=== PATIENT | female | born 1995 | race Caucasian/White ===

== ENCOUNTER 2017-01-12 20:05 | Emergency (ER) | payer BC ==
[~2017-01-12] VITALS: Ht 167.6 cm; Wt 81.7 kg
[~2017-01-12 20:05] MED LIST: BCPILLS PO; CITA10TA4 PO; MNC100 PO
[2017-01-12 20:23] VITALS: TEMP 36.9; Ht 167.6 cm; Wt 81.7 kg
[2017-01-12 21:25] VITALS: O2SAT 100
[2017-01-12] MEDS ORDERED: METOCLOPRAMIDE HCL INJ 5 MG/ML 2 ML VIAL IV STA (21:38)
[2017-01-12] MEDS ORDERED: SODIUM CHLORIDE 0.9% 1000ML 1,000 ML IV STA (21:38)
[2017-01-12] MEDS ORDERED: KETOROLAC TROMETHAMINE 30 MG/ML VIAL IV STA (21:38)
[2017-01-12] MEDS ORDERED: DiphenhydrAMINE HCL 50 MG/ML VIAL IV STA (21:38)
[2017-01-12] MEDS ORDERED: EFF/375 PO (21:56)
[2017-01-12 23:00] VITALS: BP 106/75; PULSE 81; O2SAT 98
--- NOTE | 2017-01-13 03:06 | EMERGENCY ROOM VISIT NOTE ---
History First contact with patient: 21:28 Chief Complaint: HEADACHE Stated Complaint: MIGRAINE, CAN'T BREATH, NAUSEA, LIGHT HEADED History of Present Illness The patient is a 21 year old female who presents to the Emergency Room with complaints of intermittent headache, nausea, tingling and fatigue for the past 3 days. Patient describes the headache as mild, 3 out of 10 to the temporal region. Patient is a college student here. She's been under more stress. Patient denies fever, chills, cough, contusion, vomiting, diarrhea, neck stiffness, sore throat, cold symptoms. Patient states she also suffers from anxiety. She has not missed any doses of her medications. Review of Systems See HPI for pertinent positives & negatives. A total of 10 systems reviewed and were otherwise negative. Past Medical/Surgical History Medical Problems: (1) Anxiety Family History Patient reports no known family medical history. Social History Smoking Status: Never Smoker Drug Use: none Marital Status: single Housing Status: lives with family Occupation Status: student Current/Historical Medications Scheduled Control Pills ( Control Pills), 1 TAB PO DAILY Venlafaxine Hcl (Effexor), 37.5 MG PO BID Allergies Coded Allergies: No Known Allergies (Unverified , 02/21/14) Physical Exam Vital Signs Date Time Temp Pulse Resp B/P Pulse Ox O2 Delivery O2 Flow Rate FiO2 01/12/17 23:00 81 16 106/75 98 01/12/17 22:21 81 16 106/75 98 Room Air 01/12/17 21:33 86 01/12/17 21:25 100 Room Air 01/12/17 21:19 82 16 117/79 95 Room Air 111/77 01/12/17 20:23 36.9 98 18 124/83 100 Room Air Pain Rating (0-10): 3.0 Physical Exam VITALS: Vitals are noted on the nurse's note and reviewed by myself. Vital signs stable. GENERAL: Pleasant female, in no acute distress, nondiaphoretic, well-developed well-nourished. SKIN: The skin was without rashes, erythema, edema, or bruising. There is no tenting of the skin. Capillary reflex less than 2 seconds. HEAD: Normocephalic atraumatic. EARS: External auditory canals clear, tympanic membranes pearly napier without erythema or effusion bilaterally. EYES: Pupils equal round and reactive to light and accommodation. Conjunctivae without injection, sclerae without icterus. Extraocular movements intact. NOSE: Patent, turbinates without inflammation or discharge. No sinus tenderness. MOUTH: Mucous membranes moist. Pharynx without erythema or exudate. Uvula midline. Airway patent. Tongue does not deviate. NECK: Supple without nuchal rigidity. No lymphadenopathy. No thyromegaly. Cervical spine is nontender. No JVD. No meningeal signs HEART: Regular rate and rhythm without murmurs gallops or rubs. LUNGS: Clear to auscultation bilaterally without wheezes, rales or rhonchi. No dullness to percussion. No retractions or accessory muscle use. ABDOMEN: Positive bowel sounds x 4. Normal tympanic percussion. Soft, nontender, without masses or organomegaly. Rivera sign negative. No guarding or rebound tenderness. MUSCULOSKELETAL: No muscle atrophy, erythema, or edema noted. NEURO: Patient was alert and oriented to person place and time. Normal sensation to light and sharp touch. No focal neurological deficits. Cranial nerves II-12 grossly intact. No pronator drift. Cerebellar exam intact. Medical Decision & Procedures Medications Administered Medications (Trade) Dose Ordered Sig/Tab Route Start Time Stop Time Status Last Admin Dose Admin Sodium Chloride (Nss 1000ml) 1,000 ml @ 999 mls/hr Q1H1M STAT IV 01/12/17 21:38 01/12/17 22:38 DC 01/12/17 22:21 999 MLS/HR Ketorolac Tromethamine (Toradol Inj) 30 mg NOW STAT IV 01/12/17 21:38 01/12/17 21:41 DC 01/12/17 22:21 30 MG Metoclopramide HCl (Reglan Inj) 10 mg NOW STAT IV 01/12/17 21:38 01/12/17 21:41 DC 01/12/17 22:21 10 MG Diphenhydramine HCl (Benadryl Inj) 12.5 mg NOW STAT IV 01/12/17 21:38 01/12/17 21:41 DC 01/12/17 22:20 12.5 MG ED Course Prior records/ancillary studies reviewed. Additional history obtained from family. Triage Nursing notes reviewed. The patient's history was concerning for headache. Differential diagnosis: Etiologies such as migraine headache, meningitis, sinusitis, CO exposure, ICH, SAH, infection, tumor, headache, sinus thrombosis, arterial dissection, as well as others were entertained. Physical examination findings: As above. Non-focal. ER treatment provided: Benadryl, Toradol, Reglan, IV fluids On reassessment the patient felt better. Diagnostics interpreted by me: Patient declined further workup This appears to be consistent with headache with fatigue. Patient declined further workup and requested to leave. She states she felt much better and did not want any laboratory work here. I informed her that I cannot rule anything out without doing further testing and patient understands this and states she' ll follow-up this week with family care. I informed her I cannot rule out anything for her fatigue without doing further testing and understands this. She states if anything worsens she will return to the ER immediately. Mother was present for this conversation. By the evaluation outlined above emergent etiologies such as meningitis, sinusitis, CO exposure, ICH, SAH, infection, temporal arteritis, tumor, sinus thrombosis, arterial dissection, as well as others were deemed relatively unlikely. The pt informed about the findings as listed above. All questions were answered and pleased with the treatment. Return instructions were outlined and the patient was discharged in stable condition. Referral: The patient was referred back to their primary care physician for follow-up in 2 to 3 days for a recheck of the current condition. Medical Decision As above Impression Primary Impression: Headache Departure Information Dispostion Home / Self-Care Condition GOOD Forms HOME CARE DOCUMENTATION FORM, School Instructions, Return To School: 1 day IMPORTANT VISIT INFORMATION Patient Instructions [facility] Additional Instructions DO NOT drive, drink alcohol, operate machinery, or perform dangerous activities today. You were given medications in the ER that can affect your ability to safely function or operate a vehicle. Rest today in a quiet, peaceful, dark environment and get a full 8-10 hrs of sleep tonight. Avoid loud noises, smoke/smoking, alcohol, bright lights, stress, or physical exertion today to minimize the chance the headache may return. Continue current medications. Ibuprofen(Motrin, Advil) may be used for fever or pain. Use 600mg every six hours as needed. Take with food. Avoid using more than 2400mg in a 24 hour period. Do not use 2400mg per day for more than three consecutive days without physician direction. Prolonged inappropriate use can lead to stomach upset or ulcers. (AND/OR) Acetaminophen(Tylenol) may be used for fever or pain. Use 1000mg every six hours as needed. Avoid using more than 3000mg in a 24 hour period. Return to the ER for passing out, worsening headache, vision problems, neck stiffness/pain, fevers, vomiting, worsening of your condition, or as needed. Follow up with your primary physician in 2-3 days for a recheck of your current condition. School Instructions Return To School: 1 day Problem Qualifiers Primary Impression: Headache Headache type: unspecified Headache chronicity pattern: acute headache Intractability: not intractable Qualified Codes: R51 - Headache
== END 2017-01-12 23:01 | disposition home or self-care (01) ==
LOC: C.EDB 20:06 → C.EDA 23:01
DX: R51 Headache (principal); F41.9 Anxiety disorder, unspecified; Z79.899 Other long term (current) drug therapy

== ENCOUNTER → 2017-07-23 | Outpatient (CLI) | payer BC ==
[~2017-07-23] MED LIST changes: -CITA10TA4 PO; +EFF/375 PO; -MNC100 PO
== END | disposition home or self-care (01) ==
LOC: C.PAPS 11:00
PROVIDERS: ATTEND Obstetrics & Gynecology
DX: Z01.419 Encounter for gynecological examination (general) (routine) without abnormal findings (principal)

== ENCOUNTER → 2017-08-04 | Outpatient (CLI) | payer BC ==
--- NOTE | 2017-08-04 08:27 | DIAGNOSTIC IMAGING REPORT ---
BRAIN WITHOUT CONTRAST HISTORY: Headache MIGRAINE TECHNIQUE: Multiplanar multisequence MRI of the brain was performed without the use of contrast. COMPARISON STUDY: None. FINDINGS: There are no areas of restricted diffusion to suggest acute infarction. The midline structures are intact. The paranasal sinuses are clear. The mastoid air cells are clear. The ventricles and sulci are within normal limits for age. There is no mass, hematoma, midline shift. The major vascular flow-voids at the skull base are well maintained. Several very small foci of increased signal consistent with a patient with a history of chronic headache. IMPRESSION: No acute intracranial abnormality. Several very small foci of increased signal consistent with the patient's history of headache. The above report was generated using voice recognition software. It may contain grammatical, syntax or spelling errors. Electronically signed by: Minor Myers M.D. 08/04/2017 8:26 AM Dictated Date/Time: 08/04/2017 8:10 AM
== END | disposition home or self-care (01) ==
LOC: C.MRI 07:31
PROVIDERS: ATTEND Family Medicine
DX: G43.109 Migraine with aura, not intractable, without status migrainosus (principal)